=== PATIENT | female | born 1950 | race Caucasian/White ===

== ENCOUNTER 2017-08-07 10:43 | Emergency (ER) | payer MEDICARE, BC ==
[~2017-08-07] VITALS: Ht 165.1 cm; Wt 122.5 kg
[2017-08-07] MEDS ORDERED: COZAAR 50 MG TA50 M2 PO (11:04)
[2017-08-07] MEDS ORDERED: IBUPROFEN 800800 M1 PO (11:04)
[2017-08-07] MEDS ORDERED: ALEVE220 MG PO (11:04)
[2017-08-07] MEDS ORDERED: XANAX1 MG PO (11:05)
[2017-08-07] MEDS ORDERED: MEDROLDOSEPACK PO (11:33)
[2017-08-07 11:51] VITALS: BP 116/79
== END 2017-08-07 11:50 | disposition home or self-care (01) ==
LOC: M.ERS 10:43
DX: M25.531 Pain in right wrist (principal); Z90.49 Acquired absence of other specified parts of digestive tract